=== PATIENT | male | born 1945 | race Caucasian/White ===

== ENCOUNTER 2018-11-13 21:30 | Inpatient (IN) ==
[2018-11-13] MEDS ORDERED: CATAPRES TAB 0.2 MG ONE (22:19)
[2018-11-13] MEDS ORDERED: CATAPRES TAB 0.2 MG PO ONE (22:19)
--- NOTE | 2018-11-13 22:25 | DR.CP ---
HPI Time Seen Time Seen by Provider: 11/13/18 22:19 PCP Primary Care Physician: FANTA LOCKE HPI Comment HPI Comment: THIS 73YR OLD WHITE MALE WITH HISTORY OF HYPERTENSION AND DM WHOIS IN ED WITH CHEST PAIN AND ELEVATED BP THAT STARTED YESTERDAY. SYMPTOM WORSE TODAY. NO FEVER OR DYSURIA. PAIN PRESSURE LIKE ASSOCIATED WITH SO. Complaint Chief Complaint Doctor Comments: CHEST PAIN. ELEVATED BP TIMES ONE DAY. Chief Complaint:: PT STATED HIS BLOOD PRESSURE IS HIGH/ CHEST PAIN Self Treatment fo Chief Complaint: STARTED YESTERDAY BUT FEEL LIKE IT IS GETTING WORSE. Reviewed Nurses Notes Review: Yes Source History Provided: Patient Mode of Arrival Mode of Arrival: Ambulatory Timing Onset of Chief Complaint: 11/12/18 Came on: Suddenly Duration Duration: Intermittent Duration: Days Location Location of Chest Pain: Left and Chest Context Onset: At rest Cardiac Risk Factors: HTN PE Risk Factors: None History of: None Prehospital Care: None Quality Quality: Pressure like Modifying Factors Worsens: Exertion Impoves: Rest Associated Signs and Symptoms Associated Signs and Symptoms: Shortness of Breath PMH PMH Past Medical History: Yes Past Medical History: Diabetes and Hypertension Past Surgical History: Yes Past Surgical History Comment: RIGHT ARM ABOUT TWENTY YEARS AGO Family History History of Family Medical Conditions: Yes Family Medical History: Diabetes Mellitus and Hypertension Social History Does patient currently use any type of tobacco product: No Have you used tobacco products in the last 12 months: No Type of Tobacco Use: None Does any household member use tobacco: No Alcohol Use: None Do you use any recreational Drugs:: No Lives With: Spouse Lives Where: Home infectious screening In the last 2 months have you had wt loss of >10#?: NO Have you had fever, night sweats or hemotysis?: No Have you traveled outside the country in the last 6 months?: No ROS Review of Systems Constitutional: No Symptoms Reported Eyes: No Symptoms Reported ENTM: No Symptoms Reported Respiratoy: Short of Breath Cardiovascular: Chest Pain Gastrointestinal/Abdominal: No Symptoms Reported Genitourinary: No Symptoms Reported Neurological: No Symptoms Reported Musculoskeletal: No Symptoms Reported Integumentary: No Symptoms Reported Hematologic/Lymphatic: No Symptoms Reported Endocrine: No Symptoms Reported Psychiatric: No Symptoms Reported All Other Systems: Reviewed and Negative PE Vitals Vitals: Temperature 98.3 F Pulse Rate [Left Brachial] 73 Pulse Rate [Apical] 61 Pulse Rate 91 Respiratory Rate 21 Blood Pressure [Right Arm] 175/82 Blood Pressure [Left Arm] 121/65 Blood Pressure 164/83 O2 Sat by Pulse Oximetry 100 General Limitations: No Limitations General Appearance: Alert and In No Apparent Distress Head Head Exam: Normal Inspection Eyes Eye exam: Normal Appearance ENT ENT Exam: Normal Exam Chest Chest Inspection: Normal Inspection Respiratory Respiratory Exam: Normal Lung Sounds Bilat Respiratory Exam: Bilateral: Rhonchi, Left: Rhonchi, Right: Rhonchi and Lower: Rhonchi Cardiovascular Cardiovascular Exam: Regular Rate and Normal Rhythm Pulse: Normal Edema: Normal Abdominal Exam Abdominal Exam: Normal Inspection, Normal Bowel Sounds and Soft Extremities Extremities Exam: Normal Inspection Back Back Exam: Normal Inspection Neurologic Neurological Exam: Alert and Oriented X3 Psychiatric Psychiatric Exam: Normal Affect and Normal Mood Skin Skin Exam: Warm, Dry, Intact and Normal Color MDM Differential Diagnosis Differential Diagnosis: Angina, Chest Wall Pain, CHF, Costochondritis, Gastritis, Myocardial Infarction, Pericarditis, Pleuritis, Pneumonia, Pneumothorax and Pulmonary Embolus COURSE Treatment Treatment: SEE ORDERS. Education/Counseling Education/Counseling: Patient Educated On: Diagnosis and Needs for Follow Up ROR Labs Reviewed Laboratory Results Reviewed?: Yes Result Diagrams: 11/15/18 06:00 11/15/18 06:00 Laboratory: WBC 9.5 X10^3/uL (3.6-10.0) 11/15/18 06:00 RBC 4.24 X10^6/uL (4.7-6.0) L 11/15/18 06:00 Hgb 13.1 g/dL (13.5-18.0) L 11/15/18 06:00 Hct 39.1 % (42.0-54.0) L 11/15/18 06:00 MCV 92.2 fL (80.0-100.0) 11/15/18 06:00 MCH 31.0 pg (27.0-34.0) 11/15/18 06:00 MCHC 33.6 g/dL (33.0-35.0) 11/15/18 06:00 RDW 14.3 % (11.6-16.5) 11/15/18 06:00 Plt Count 311 X10^3/uL (150.0-450.0) 11/15/18 06:00 MPV 9.7 fL (7.4-11.0) 11/15/18 06:00 Neut % (Auto) 68.2 % (42.0-75.0) 11/15/18 06:00 Lymph % (Auto) 19.9 % (21.0-51.0) L 11/15/18 06:00 Person % (Auto) 9.6 % (0.0-13.0) 11/15/18 06:00 Eos % (Auto) 1.8 % (0.9-2.9) 11/15/18 06:00 Baso % (Auto) 0.5 % (0.2-1.0) 11/15/18 06:00 Neut # (Auto) 6.5 x10^3/uL (2.2-4.8) H 11/15/18 06:00 Lymph # (Auto) 1.9 X10^3/uL (1.3-2.9) 11/15/18 06:00 Person # (Auto) 0.9 x10^3/uL (0.3-0.8) H 11/15/18 06:00 Eos # (Auto) 0.2 x10^3/uL (0.0-0.2) 11/15/18 06:00 Baso # (Auto) 0.0 X10^3/uL (0.0-0.1) 11/15/18 06:00 Absolute Nucleated RBC 0.1 /100WBC 11/15/18 06:00 INR Target Range - 11/13/18 22:26 INR 0.91 (0.8-1.3) 11/13/18 22:26 APTT 79.0 SECONDS (22.9-36.5) H 11/15/18 09:07 PTT Comment - 11/15/18 09:07 Sodium 137 mmol/L (136-145) 11/15/18 06:00 Corrected Sodium 141 mmol/L (136-145) 11/15/18 06:00 Potassium 4.1 mmol/L (3.5-5.1) 11/15/18 06:00 Chloride 101 mmol/L (98-107) 11/15/18 06:00 Carbon Dioxide 27.0 mmol/L (21-32) 11/15/18 06:00 BUN 19 mg/dL (7-18) H 11/15/18 06:00 Creatinine 1.25 mg/dL (0.70-1.30) 11/15/18 06:00 Est GFR (MDRD) Af Amer > 60 (>60) 11/15/18 06:00 Est GFR (MDRD) Non-Af > 60 (>60) 11/15/18 06:00 Glucose 275 mg/dL (65-99) H 11/15/18 06:00 POC Glucose (mg/dL) 305 mg/dL (65-99) H 11/15/18 11:31 Calcium 9.2 mg/dL (8.5-10.1) 11/15/18 06:00 Corrected Calcium 9.8 mg/dL (8.5-10.1) 11/15/18 06:00 Total Bilirubin 0.30 mg/dL (0.2-1.0) 11/15/18 06:00 AST 16 Units/L (15-37) 11/15/18 06:00 ALT 23 Units/L (12-78) 11/15/18 06:00 Alkaline Phosphatase 62 Units/L (46-116) 11/15/18 06:00 Creatine Kinase 64 Units/L (39-308) 11/14/18 15:25 CK-MB (CK-2) 1.0 ng/mL (0-4.0) 11/14/18 15:25 CK/CKMB % Calc 1.6 % (<4) 11/14/18 15:25 Troponin I 0.37 ng/mL (0-1.5) 11/14/18 15:25 Total Protein 6.8 g/dL (6.4-8.2) 11/15/18 06:00 Albumin 3.3 g/dL (3.4-5.0) L 11/15/18 06:00 Globulin 3.5 g/dL (2.5-4.5) 11/15/18 06:00 Albumin/Globulin Ratio 0.9 Ratio (1.1-2.1) L 11/15/18 06:00 Triglycerides 141 mg/dL (0-150) 11/14/18 04:57 Cholesterol 126 mg/dL (0-200) 11/14/18 04:57 LDL Cholesterol, Calc 54 mg/dL (0-100) 11/14/18 04:57 HDL Cholesterol 44 mg/dL (40-60) 11/14/18 04:57 Cholesterol/HDL Ratio 2.9 (0.0-5.0) 11/14/18 04:57 Specimen Type Clean catch urine 11/13/18 23:12 Urine Color Yellow (YELLOW) 11/13/18 23:12 Urine Appearance Clear (CLEAR) 11/13/18 23:12 Urine pH 7.0 (5.0 - 8.0) 11/13/18 23:12 Ur Specific [place] 1.010 (1.000-1.030) 11/13/18 23:12 Urine Protein 2+ (NEGATIVE) 11/13/18 23:12 Urine Glucose (UA) 3+ (NEGATIVE) 11/13/18 23:12 Urine Ketones 2+ (NEGATIVE) 11/13/18 23:12 Urine Occult Blood Negative (NEGATIVE) 11/13/18 23:12 Urine Nitrite Negative (NEGATIVE) 11/13/18 23:12 Urine Bilirubin Negative (NEGATIVE) 11/13/18 23:12 Urine Urobilinogen Normal (NORMAL) 11/13/18 23:12 Ur Leukocyte Esterase Negative (NEGATIVE) 11/13/18 23:12 Urine RBC None seen /HPF (NONE SEEN) 11/13/18 23:12 Urine WBC None seen /HPF (NONE SEEN) 11/13/18 23:12 Ur Squamous Epith Cells Rare /HPF (NEGATIVE) 11/13/18 23:12 Urine Bacteria Negative /HPF (NEGATIVE) 11/13/18 23:12 Ur Culture Indicated? No/not indicated 11/13/18 23:12 XRAY XRAY Interpreted by: Radiologist XRAY Findings: REPORT ON RECOERD NOTED AND DISCUSS WITH PATIENT. EKG [place]: Normal Rhythm: NSR Block: None Hypertrophy: None ST: Normal Diagnosis Discharge Problem: Chest pain, rule out acute myocardial infarction
[2018-11-13 22:41] LABS: BASOPHILS % (AUTO) 0.3 % (0.2-1.0); EOSINOPHILS # (AUTO) 0.2 x10^3/uL (0.0-0.2); EOSINOPHILS % (AUTO) 2.5 % (0.9-2.9); HEMATOCRIT 41.7 % (42.0-54.0); HEMOGLOBIN 13.8 g/dL (13.5-18.0); LYMPHOCYTES # (AUTO) 1.9 X10^3/uL (1.3-2.9); LYMPHOCYTES % (AUTO) 19.6 % (21.0-51.0); MEAN CORPUSCULAR HEMOGLOBIN 30.7 pg (27.0-34.0); MEAN CORPUSCULAR HGB CONC 33.2 g/dL (33.0-35.0); MEAN CORPUSCULAR VOLUME 92.6 fL (80.0-100.0); MEAN PLATELET VOLUME 9.6 fL (7.4-11.0); MONOCYTES % (AUTO) 9.8 % (0.0-13.0); NEUTROPHILS # (AUTO) 6.6 x10^3/uL (2.2-4.8); NEUTROPHILS % (AUTO) 67.8 % (42.0-75.0); PLATELET COUNT 312 X10^3/uL (150.0-450.0); RED BLOOD COUNT 4.51 X10^6/uL (4.7-6.0); RED CELL DISTRIBUTION WIDTH 14.1 % (11.6-16.5); WHITE BLOOD COUNT 9.8 X10^3/uL (3.6-10.0)
[2018-11-13 22:51] LABS: ALANINE AMINOTRANSFERASE 24 Units/L (12-78); ALBUMIN 3.6 g/dL (3.4-5.0); ALKALINE PHOSPHATASE 67 Units/L (46-116); ASPARTATE AMINO TRANSFERASE 17 Units/L (15-37); BLOOD UREA NITROGEN 21 mg/dL (7-18); CALCIUM 9.4 mg/dL (8.5-10.1); CARBON DIOXIDE 28.3 mmol/L (21-32); CHLORIDE 98 mmol/L (98-107); COR NA(FOR HYPERGLY) 139 mmol/L (136-145); CREATININE 1.43 mg/dL (0.70-1.30); SODIUM 136 mmol/L (136-145); TOTAL PROTEIN 7.3 g/dL (6.4-8.2); eGFR NON BLACK RACES 52 (>60)
[2018-11-13 22:59] LABS: CKMB % 1.6 % (<4); CREATINE KINASE MB 1.5 ng/mL (0-4.0); TROPONIN I 0.38 ng/mL (0-1.5)
[2018-11-13 23:20] LABS: BILIRUBIN,URINE NEGATIVE (NEGATIVE); BLOOD/HEMOGLOBIN,URINE NEGATIVE (NEGATIVE); GLUCOSE, URINE 3+ (NEGATIVE); KETONES,URINE 2+ (NEGATIVE); LEUKOCYTE ESTERASE ,URINE NEGATIVE (NEGATIVE); NITRITES,URINE NEGATIVE (NEGATIVE); PROTEIN,URINE 2+ (NEGATIVE); UROBILINOGEN,URINE NORMAL (NORMAL)
[2018-11-13 23:50] LABS: APPEARANCE,URINE CLEAR (CLEAR); BACTERIA,URINE NEGATIVE /HPF (NEGATIVE); COLOR,URINE YELLOW (YELLOW); RBC,URINE NONE SEEN /HPF (NONE SEEN); SQUAMOUS EPITHELIAL CELL,UR RARE /HPF (NEGATIVE)
[2018-11-14] MEDS ORDERED: ZOFRAN INJ 4 MG VIAL IVP ONE (02:26)
[2018-11-14] MEDS ORDERED: MORPHINE SULFATE INJ 4 MG IVP ONE (02:26)
[2018-11-14] MEDS ORDERED: MORPHINE SULFATE INJ 4 MG ONE (02:31)
[2018-11-14] MEDS ORDERED: ZOFRAN INJ 4 MG VIAL ONE (02:31)
[2018-11-14] MEDS ORDERED: NS 1000 ML 1,000 ML ONE (04:42)
[2018-11-14] MEDS: NS 1000 ML 1,000 ML IV SCH ×2 (04:59→16:03)
[2018-11-14 05:55] VITALS: BMI 23.3
[2018-11-14 05:57] LABS: BASOPHILS # (AUTO) 0.1 X10^3/uL (0.0-0.1); BASOPHILS % (AUTO) 0.6 % (0.2-1.0); EOSINOPHILS # (AUTO) 0.2 x10^3/uL (0.0-0.2); EOSINOPHILS % (AUTO) 2.3 % (0.9-2.9); HEMATOCRIT 38.6 % (42.0-54.0); HEMOGLOBIN 12.9 g/dL (13.5-18.0); LYMPHOCYTES # (AUTO) 1.7 X10^3/uL (1.3-2.9); MEAN CORPUSCULAR HEMOGLOBIN 30.8 pg (27.0-34.0); MEAN CORPUSCULAR HGB CONC 33.3 g/dL (33.0-35.0); MEAN CORPUSCULAR VOLUME 92.3 fL (80.0-100.0); MEAN PLATELET VOLUME 9.6 fL (7.4-11.0); MONOCYTES # (AUTO) 0.8 x10^3/uL (0.3-0.8); MONOCYTES % (AUTO) 9.7 % (0.0-13.0); NEUTROPHILS # (AUTO) 5.7 x10^3/uL (2.2-4.8); NEUTROPHILS % (AUTO) 67.4 % (42.0-75.0); PLATELET COUNT 291 X10^3/uL (150.0-450.0); RED BLOOD COUNT 4.18 X10^6/uL (4.7-6.0); RED CELL DISTRIBUTION WIDTH 14.1 % (11.6-16.5); WHITE BLOOD COUNT 8.5 X10^3/uL (3.6-10.0)
[2018-11-14 06:15] LABS: ALANINE AMINOTRANSFERASE 23 Units/L (12-78); ALBUMIN 3.3 g/dL (3.4-5.0); ALKALINE PHOSPHATASE 60 Units/L (46-116); ASPARTATE AMINO TRANSFERASE 16 Units/L (15-37); BLOOD UREA NITROGEN 21 mg/dL (7-18); CARBON DIOXIDE 27.6 mmol/L (21-32); CHLORIDE 100 mmol/L (98-107); CHOL/HDL RATIO 2.9 (0.0-5.0); CHOLESTEROL 126 mg/dL (0-200); CKMB % 1.7 % (<4); COR CA(FOR HYPOALB) 9.6 mg/dL (8.5-10.1); COR NA(FOR HYPERGLY) 139 mmol/L (136-145); CREATINE KINASE 70 Units/L (39-308); CREATINE KINASE MB 1.2 ng/mL (0-4.0); CREATININE 1.21 mg/dL (0.70-1.30); HDL CHOLESTEROL 44 mg/dL (40-60); SODIUM 136 mmol/L (136-145); TOTAL PROTEIN 6.8 g/dL (6.4-8.2); TRIGLYCERIDES 141 mg/dL (0-150); TROPONIN I 0.39 ng/mL (0-1.5); eGFR NON BLACK RACES > 60 (>60)
[2018-11-14] MEDS: HEMOCYTE-PLUS PO SCH ×2 (10:15→21:19)
[2018-11-14] MEDS: JANUVIA PO SCH (10:15)
[2018-11-14] MEDS: ASPIRIN PO SCH (10:35)
[2018-11-14 10:37] LABS: CREATINE KINASE MB 1.2 ng/mL (0-4.0); TROPONIN I 0.37 ng/mL (0-1.5)
[2018-11-14] MEDS ORDERED: GLUCOPHAGE ONE (15:10)
--- NOTE | 2018-11-14 15:25 | DR.H&P ---
H&P - History & Physical for Day of: H&P Date: 11/14/18 - Chief Complaint Chief Complaint: CHEST PAIN, ELEVATED BLOOD PRESSURE - History of Present Illness History of Present Illness: 73 WM ER ADMISSION AFTER PRESENTING WITH CO CHEST PAIN AND ELEVATED BLOOD PRESSURE. PT HAS PMH OF DM AND HTN, HYPERLIPIDEMIA. PT STATES HIS PAIN STARTED WHILE HE WAS AT REST. PT DENIES ANY CARDIAC HISTORY, NEVER HAD HEART CATH. PT HAD ELEVATED TROPONIN IN ER WITH ABNORMAL EKG. PT ADMITTED FOR R/O AMI - Past Medical History Past Medical History: Hypertension, Diabetes - Past Surgical History Surgical History: Ortho Surgery - Family History Family Medical History: Diabetes Mellitus, Hypertension - Social History Does patient currently use any type of tobacco product: No Have you used tobacco products in the last 12 months: No Type of Tobacco Use: None Does any household member use tobacco: No Alcohol Use: None - Medications Home Medications: No Known Drug Allergies Allergy (Verified 11/13/18 22:15) CONTINUE taking the following medications aspirin 325 mg PO DAILY 11/14/18 [History] ferrous sulfate 1 tab PO BID 11/14/18 [History] glipizide 10 mg PO BID 11/14/18 [History] levothyroxine 1 tab PO DAILY 11/14/18 [History] lisinopril-hydrochlorothiazide 1 tab PO DAILY 11/14/18 [History] metformin 1,000 mg PO BID 11/14/18 [History] omeprazole 20 mg PO DAILY 11/14/18 [History] ranitidine HCl [Zantac] 1 tab PO DAILY 11/14/18 [History] simvastatin 20 mg PO QHS 11/14/18 [History] sitagliptin [Januvia] 100 mg PO DAILY 11/14/18 [History] - Review of Systems Constitutional: No Symptoms Reported Eyes: No Symptoms Reported ENT: No Symptoms Reported Respiratory: No Symptoms Reported Cardiovascular: Chest Pain Gastrointestinal: No Symptoms Reported Genitourinary: No Symptoms Reported Musculoskeletal: No Symptoms Reported Skin: No Symptoms Reported Neurological: No Symptoms Reported - Physical Exam Vital Signs: Temperature 98.0 F Pulse Rate [Left Brachial] 54 Pulse Rate [Apical] 61 Pulse Rate 90 Respiratory Rate 18 Blood Pressure [Right Arm] 153/72 Blood Pressure [Left Arm] 121/65 Blood Pressure 180/100 O2 Sat by Pulse Oximetry 97 Oriented: Normal Eyes: Normal Ear: Normal Nose: Normal Throat: Normal Respiratory: RLL Diminished, LLL Diminished Cardiovascular: Normal : Normal Auscultation: Bowel Sounds: Normal Palpation: Normal Tenderness: Normal Skin: Normal Musculoskeletal: Normal Psychiatric: Anxiety Affect: Anxious Speech Pattern: Clear, Appropriate - Assessment/Plan (1) Chest pain, rule out acute myocardial infarction Status: Acute Plan: ADMIT, SERIAL CE AND EKG. BLOOD SUGAR AND BLOOD PRESSURE CONTROL. SSI, VERIFY HOME MEDICATIONO. ASPIRIN, STATIN THERAPY. SUPPLEMENTAL O2 (2) Hypertension Status: Acute (3) Diabetes Status: Acute (4) Hyperlipidemia Status: Acute - Allergies Allergies/Adverse Reactions: Allergies Allergy/AdvReac Type Severity Reaction Status Date / Time No Known Drug Allergies Allergy Verified 11/13/18 22:15
[2018-11-14 15:58] LABS: CKMB % 1.6 % (<4); TROPONIN I 0.37 ng/mL (0-1.5)
[2018-11-14] MEDS: GLUCOPHAGE PO SCH (16:03)
[2018-11-14] MEDS: GLUCOTROL PO SCH (16:03)
[2018-11-14] MEDS ORDERED: PriLOSEC PO SCH (16:30)
[2018-11-14] MEDS ORDERED: HEPARIN SODIUM IN D5W 25,000 UNITS/500 ML BAG IV PRN (18:55)
[2018-11-14] MEDS ORDERED: NITROSTAT ONE (18:57)
[2018-11-14] MEDS: NITROSTAT SL PRN ×2 (19:01→22:05)
[2018-11-14] MEDS: PLAVIX PO SCH (19:12)
[2018-11-14] MEDS ORDERED: HEPARIN SODIUM INJ 5000 UNITS IVP ONE (19:37)
[2018-11-14] MEDS ORDERED: HEPARIN SODIUM INJ 5000 UNITS ONE (19:39)
[2018-11-14] MEDS ORDERED: SNACK - Diabetic Appropriate PO SCH (20:00)
[2018-11-14] MEDS ORDERED: ZOCOR TAB 20 MG PO SCH (21:00)
--- NOTE | 2018-11-14 22:08 | RAD ---
Chest, one view Indication: Chest pain Comparison: None Findings: The heart is mildly enlarged without congestive failure. There are left basilar retrocardiac opacities which partially obscure the left hemidiaphragm. The left upper lung and right lung are clear. No pneumothorax. Impression: Mild cardiomegaly without CHF. Left basilar retrocardiac opacities, either representing effusion, atelectasis, infiltrate or a combination. Clinical correlation and continued radiographic follow-up recommended. Reported By:
[2018-11-15] MEDS ORDERED: CATAPRES TAB 0.1 MG PO PRN (00:34)
[2018-11-15] MEDS ORDERED: CATAPRES TAB 0.1 MG ONE (00:38)
[2018-11-15] MEDS ORDERED: HEPARIN SODIUM INJ 5000 UNITS IVP ONE (02:34)
[2018-11-15] MEDS ORDERED: HEPARIN SODIUM INJ 5000 UNITS ONE (02:36)
[2018-11-15 06:21] LABS: BASOPHILS % (AUTO) 0.5 % (0.2-1.0); EOSINOPHILS # (AUTO) 0.2 x10^3/uL (0.0-0.2); EOSINOPHILS % (AUTO) 1.8 % (0.9-2.9); HEMATOCRIT 39.1 % (42.0-54.0); HEMOGLOBIN 13.1 g/dL (13.5-18.0); LYMPHOCYTES # (AUTO) 1.9 X10^3/uL (1.3-2.9); LYMPHOCYTES % (AUTO) 19.9 % (21.0-51.0); MEAN CORPUSCULAR HGB CONC 33.6 g/dL (33.0-35.0); MEAN CORPUSCULAR VOLUME 92.2 fL (80.0-100.0); MEAN PLATELET VOLUME 9.7 fL (7.4-11.0); MONOCYTES # (AUTO) 0.9 x10^3/uL (0.3-0.8); MONOCYTES % (AUTO) 9.6 % (0.0-13.0); NEUTROPHILS # (AUTO) 6.5 x10^3/uL (2.2-4.8); NEUTROPHILS % (AUTO) 68.2 % (42.0-75.0); PLATELET COUNT 311 X10^3/uL (150.0-450.0); RED BLOOD COUNT 4.24 X10^6/uL (4.7-6.0); RED CELL DISTRIBUTION WIDTH 14.3 % (11.6-16.5); WHITE BLOOD COUNT 9.5 X10^3/uL (3.6-10.0)
[2018-11-15] MEDS ORDERED: GLUCOPHAGE ONE (06:22)
[2018-11-15] MEDS: NS 1000 ML 1,000 ML IV SCH (06:25)
[2018-11-15] MEDS: GLUCOTROL PO SCH (06:26)
[2018-11-15] MEDS: GLUCOPHAGE PO SCH (06:27)
[2018-11-15 06:28] LABS: ALANINE AMINOTRANSFERASE 23 Units/L (12-78); ALBUMIN 3.3 g/dL (3.4-5.0); ALKALINE PHOSPHATASE 62 Units/L (46-116); ASPARTATE AMINO TRANSFERASE 16 Units/L (15-37); BLOOD UREA NITROGEN 19 mg/dL (7-18); CALCIUM 9.2 mg/dL (8.5-10.1); CHLORIDE 101 mmol/L (98-107); COR CA(FOR HYPOALB) 9.8 mg/dL (8.5-10.1); COR NA(FOR HYPERGLY) 141 mmol/L (136-145); CREATININE 1.25 mg/dL (0.70-1.30); SODIUM 137 mmol/L (136-145); TOTAL PROTEIN 6.8 g/dL (6.4-8.2); eGFR NON BLACK RACES > 60 (>60)
[2018-11-15] MEDS ORDERED: SYNTHROID 100 mcg TAB PO SCH (07:30)
[2018-11-15] MEDS: HEMOCYTE-PLUS PO SCH (08:30)
[2018-11-15] MEDS: JANUVIA PO SCH (08:30)
[2018-11-15] MEDS: PLAVIX PO SCH (08:30)
[2018-11-15] MEDS: ASPIRIN PO SCH (08:31)
[2018-11-15] MEDS ORDERED: HumuLIN R ONE (11:37)
[2018-11-15 12:52] VITALS: BP 164/83
[2018-11-15] MEDS ORDERED: ASPIRIN PO ONE (18:56)
== END 2018-11-15 12:45 | disposition short-term general hospital (02) | DRG 313 ==
LOC: MED/SURG 21:36 → ER 21:36 → MED/SURG 11-14 04:30 → ICU 11-14 18:53
PROVIDERS: ADMIT Internal Medicine; ATTEND Internal Medicine
DX: Z79.01 Long term (current) use of anticoagulants; I10 Essential (primary) hypertension; R07.89 Other chest pain; Z79.899 Other long term (current) drug therapy; E11.65 Type 2 diabetes mellitus with hyperglycemia; R94.31 Abnormal electrocardiogram [ECG] [EKG]
CPT/HCPCS: 36415; 71010; 71045; 80053; 80061; 81001; 82550; 82553; 84484; 85025; 85610; 85730; 93005; 94760; 96365; 96374; 96375; 99221; 99284; A4222; G0378; J1644; J1815; J2270; J2405; J7030